=== PATIENT | female | born 1970 | race American Indian/Alaskan Native ===

== ENCOUNTER 2016-05-14 14:13 | Emergency (ER) | payer MEDICAID, MEDICARE, OTHER ==
[2016-05-14] MEDS ORDERED: ZOFRAN ODT PO ONE (16:21)
[2016-05-14] MEDS ORDERED: ZOFRAN IM ONE (18:09)
[2016-05-14] MEDS ORDERED: NACL 0.9% 1000 ML 1,000 ML IV ONE ×2 (18:43→22:10)
--- NOTE | 2016-05-14 18:59 | Emergency Department Report ---
ED Abdominal Pain HPI - General Chief Complaint: Abdominal Pain Stated Complaint: N/V/DIZZINESS Source: patient Mode of arrival: Wheelchair Limitations: No Limitations - History of Present Illness Initial Comments: 46-year-old female with a past medical history of Crohn's disease diagnosed in 2009 history of hypertension and asthma IBD with colitis. Comes in for nausea and vomiting abdominal pain. Patient reports that this has been going on since February but have progressed and gotten worse. She does report that she went to GI for a GI scope one week ago she has not gotten the results as of yet. She complains of epigastric pain and abdomen pain diffuse. Complains of nausea vomiting off and on since February diarrhea that she wearing depends she has not been able to eat much she has been trying to eat Jell-O and apple sauce most foods she has been going to her. History of hysterectomy 2006. Allergies is penicillin and sulfur iodine and Dilantin. Reports that the stomach pain is sharp and burning. - Related Data Home Medications Medication Instructions Recorded Confirmed Last Taken Ipratropium/Albuter (Nf) 3 puff IH TID 12/12/12 10/06/13 12/11/12 20:00 [Combivent Inhaler] Mesalamine [Delzicol] 400 mg PO BID 12/12/12 10/06/13 12/12/12 02:00 Omeprazole [First-Omeprazole] 20 mg PO QDAY 12/12/12 10/06/13 12/11/12 09:00 cloNIDine [Catapres] 0.2 mg PO DAILY 12/12/12 10/06/13 12/11/12 20:00 Previous Rx's Medication Instructions Recorded Last Taken Type Dicyclomine [Bentyl] 20 mg PO QID #20 tablet 12/12/12 Unknown Rx Prednisone 20 mg PO QDAY #5 tablet 04/05/13 Unknown Rx Promethazine /Codeine 5 ml PO Q6H PRN #60 udc 04/05/13 Unknown Rx [Phenergan/Codeine 6.25-10 mg/5 ml] Ondansetron [Zofran] 4 mg PO Q6HR PRN #20 tablet 07/26/13 Unknown Rx Azithromycin [Zithromax] 500 mg PO QDAY #5 tablet 09/27/13 Unknown Rx Oxycodone HCl/Acetaminophen 1 each PO Q4-6H PRN #20 tablet 09/27/13 Unknown Rx [Percocet 10-325 mg] Potassium Chloride [K-Dur] 10 meq PO QDAY #5 tablet 09/27/13 Unknown Rx Ibuprofen [Motrin 800 MG tab] 800 mg PO Q8H #30 tablet 10/07/13 Unknown Rx HYDROcodone/APAP 5-325 [[place] 1 each PO Q6HR PRN #14 tablet 05/14/16 Unknown Rx 5-325 mg TAB] Promethazine [Phenergan TAB] 50 mg PO Q6H PRN #20 tablet 05/14/16 Unknown Rx Allergies Allergy/AdvReac Type Severity Reaction Status Date / Time hydromorphone HCl AdvReac Severe PSYCHOTIC Verified 09/27/13 11:19 [From Dilaudid] EPISODES metoclopramide HCl AdvReac Severe PSYCHOTIC Verified 09/27/13 11:19 [From Reglan] EPISODES Penicillins AdvReac Severe SEIZZURES Verified 09/27/13 11:19 prochlorperazine edisylate AdvReac Severe PSYCHOTIC Verified 09/27/13 11:19 [From Compazine] EPISODES prochlorperazine maleate AdvReac Severe PSYCHOTIC Verified 09/27/13 11:19 [From Compazine] EPISODES shellfish derived AdvReac Severe BREATHING Verified 09/27/13 11:19 ISSUES,SWELLING Sulfa (Sulfonamide AdvReac Severe Rash Verified 09/27/13 11:19 Antibiotics) ED Review of Systems ROS: Stated complaint: N/V/DIZZINESS Other details as noted in HPI Gastrointestinal: abdominal pain, nausea, vomiting, diarrhea ED Past Medical Hx - Past Medical History Hx Hypertension: Yes Hx Asthma: Yes Additional medical history: chron's disease. IBS - Surgical History Hx Cholecystectomy: Yes Additional Surgical History: tubal ligation. partial hysterectomy - Social History Smoking Status: Never Smoker Substance Use Type: None - Medications Home Medications: Home Medications Medication Instructions Recorded Confirmed Last Taken Type Dicyclomine [Bentyl] 20 mg PO QID #20 tablet 12/12/12 10/06/13 Unknown Rx Ipratropium/Albuter (Nf) 3 puff IH TID 12/12/12 10/06/13 12/11/12 20:00 History [Combivent Inhaler] Mesalamine [Delzicol] 400 mg PO BID 12/12/12 10/06/1313 02:00 History Omeprazole [First-Omeprazole] 20 mg PO QDAY 12/12/12 10/06/13 12/11/12 09:00 History cloNIDine [Catapres] 0.2 mg PO DAILY 12/12/12 10/06/13 12/11/12 20:00 History Prednisone 20 mg PO QDAY #5 tablet 04/05/13 10/06/13 Unknown Rx Promethazine /Codeine 5 ml PO Q6H PRN #60 udc 04/05/13 10/06/13 Unknown Rx [Phenergan/Codeine 6.25-10 mg/5 ml] Ondansetron [Zofran] 4 mg PO Q6HR PRN #20 tablet 07/26/13 10/06/13 Unknown Rx Azithromycin [Zithromax] 500 mg PO QDAY #5 tablet 09/27/13 10/06/13 Unknown Rx Oxycodone HCl/Acetaminophen 1 each PO Q4-6H PRN #20 tablet 09/27/13 10/06/13 Unknown Rx [Percocet 10-325 mg] Potassium Chloride [K-Dur] 10 meq PO QDAY #5 tablet 09/27/13 10/06/13 Unknown Rx Ibuprofen [Motrin 800 MG tab] 800 mg PO Q8H #30 tablet 10/07/13 Unknown Rx HYDROcodone/APAP 5-325 [[place] 1 each PO Q6HR PRN #14 tablet 05/14/16 Unknown Rx 5-325 mg TAB] Promethazine [Phenergan TAB] 50 mg PO Q6H PRN #20 tablet 05/14/16 Unknown Rx ED Physical Exam - General Limitations: No Limitations General appearance: alert - Head Head exam: Present: atraumatic, normocephalic - Eye Eye exam: Present: normal appearance, PERRL, EOMI - ENT ENT exam: Present: mucous membranes dry - Neck Neck exam: Present: full ROM. Absent: tenderness, lymphadenopathy - Respiratory Respiratory exam: Present: normal lung sounds bilaterally. Absent: respiratory distress, wheezes, rales, rhonchi - Cardiovascular Cardiovascular Exam: Present: regular rate, normal rhythm, normal heart sounds - GI/Abdominal GI/Abdominal exam: Present: soft, tenderness, hypoactive bowel sounds. Absent: distended - Extremities Exam Extremities exam: Present: normal inspection, full ROM. Absent: tenderness, pedal edema - Neurological Exam Neurological exam: Present: alert, oriented X3 ED Course Vital Signs 05/14/16 05/14/16 05/14/16 15:21 18:20 19:49 Temperature 99.2 F 98.9 F Pulse Rate 95 H 94 H Respiratory 24 20 22 Rate Blood Pressure 175/116 Blood Pressure 185/108 [Left] O2 Sat by Pulse 100 100 99 Oximetry 05/14/16 05/14/16 20:49 21:02 Temperature Pulse Rate 89 Respiratory 22 20 Rate Blood Pressure Blood Pressure 177/102 [Left] O2 Sat by Pulse 99 Oximetry ED Medical Decision Making - Lab Data Result diagrams: 05/14/16 19:21 05/14/16 19:21 - Radiology Data Radiology results: image reviewed FINDINGS: Visualized lower thorax: No significant abnormality. There is a 6 millimeter calcified granuloma at the right lung base. Liver: Liver is enlarged and fatty. There is no mass.. Spleen: Normal size and attenuation. There are calcified granulomas in the spleen. Gallbladder and biliary system: There has been a cholecystectomy. Bile ducts are normal in caliber.. Pancreas: Normal. Adrenals: Normal. Kidneys: There are no kidney stones. There is no hydronephrosis.. GI tract: There is no bowel obstruction, colitis or enteritis. The appendix is normal.. Lymph nodes and mesentery: Normal. Vasculature: Normal. Bladder: Normal. Reproductive organs: There has been a hysterectomy.. Peritoneum: There is no ascites, free air, abscess or adenopathy.. Musculoskeletal structures: No significant abnormality. Other: There is an umbilical hernia containing fat only.. IMPRESSION: No acute abnormality is identified. The liver is enlarged and fatty. There has been a cholecystectomy. There are no kidney stones. There is no acute bowel abnormality. The appendix is normal.. Transcribed By: CO Dictated By: SHIREEN BARONE MD Electronically Authenticated By: SHIREEN BARONE MD Signed Date/Time: 05/14/16 1908 - Medical Decision Making Patient's been evaluated by this provider Main ER. IV fluids 1000 mL's, Zofran 8 mg IM. Awaiting labs to be done. This is difficult getting blood return secondary dehydration. Patient has been given Zofran, Phenergan per rectal and Benadryl for nausea and vomiting. CT was done with no acute abnormalities. Critical care attestation.: If time is entered above; I have spent that time in minutes in the direct care of this critically ill patient, excluding procedure time. ED Disposition Clinical Impression: Nausea and vomiting in adult, Acute abdominal pain Disposition: DISCHARGED TO HOME OR SELFCARE Is pt being admited?: No Does the pt Need Aspirin: No Condition: Stable Instructions: Abdominal Pain (ED) Prescriptions: HYDROcodone/APAP 5-325 [[place] 5-325 mg TAB] 1 each PO Q6HR PRN #14 tablet PRN Reason: Pain Promethazine [Phenergan TAB] 50 mg PO Q6H PRN #20 tablet PRN Reason: Nausea Referrals: PRIMARY CAREMD [Primary Care Provider] - 3-5 Days SALOMON FERRARA MD [Staff Physician] - 3-5 Days Forms: Work/School Release Form(ED), Accompanied Note
[2016-05-14] MEDS ORDERED: PHENERGAN PR ONE (19:14)
[2016-05-14 20:01] LABS: Hematocrit 37.8 % (30.3-42.9); Hemoglobin 12.4 gm/dl (10.1-14.3); Mean Corpuscular HGB Conc 33 % (30-34); Mean Corpuscular Hemoglobin 30 pg (28-32); Mean Corpuscular Volume 92 fl (79-97); Platelet Count 326 K/mm3 (140-440); Red Blood Count 4.09 M/mm3 (3.65-5.03); Red Cell Distribution Width 13.5 % (13.2-15.2); White Blood Count 14.3 K/mm3 (4.5-11.0)
[2016-05-14 20:13] LABS: Albumin 4.2 g/dL (3.9-5); Albumin/Globulin Ratio 1.1 %; Alkaline Phosphatase 77 units/L (35-129); Anion Gap 21 mmol/L; BUN/Creatinine Ratio 11.25; Bilirubin,Total 0.7 mg/dL (0.1-1.2); Blood Urea Nitrogen 9 mg/dL (7-17); Calcium 9.2 mg/dL (8.4-10.2); Carbon Dioxide 21 mmol/L (22-30); Chloride 103.1 mmol/L (98-107); Glucose 118 mg/dL (65-100); Lipase 15 units/L (13-60); Potassium 3.8 mmol/L (3.6-5.0); Sodium 141 mmol/L (137-145); Total Protein 7.9 g/dL (6.3-8.2)
[2016-05-14] MEDS ORDERED: MORPHINE IV ONE (20:35)
[2016-05-14 20:37] LABS: Bacteria,Urine 3+ /HPF (Negative); Mucus,Urine 3+ /HPF
[2016-05-14 20:43] LABS: Bilirubin,Urine NEG (Negative); Blood,Urine MOD (Negative); Ketones,Urine 20 mg/dL (Negative); Leukocyte Esterase,Urine LG (Negative); Nitrite,Urine NEG (Negative)
[2016-05-14 20:44] LABS: Alanine Aminotransferase 21 units/L (7-56)
[2016-05-14 20:47] LABS: Basophils % (Manual) 0 % (0.0-1.8); Blastocytes % (Manual) 0 %; Eosinophils % (Manual) 0 % (0.0-4.3)
[2016-05-14 20:49] LABS: Hypochromasia 1+
[2016-05-14 20:50] LABS: Diff Status Complete; Platelet Clumps Few; Platelet Estimate Consistent w Auto
[2016-05-14] MEDS ORDERED: BENADRYL IV ONE ×2 (20:51→23:25)
--- NOTE | 2016-05-14 21:47 | Cat Scan Report ---
FINAL REPORT PROCEDURE: CT ABDOMEN PELVIS WO CON TECHNIQUE: Computerized axial tomography of the abdomen and pelvis was performed without intravenous contrast. This study is performed without intravascular contrast material and its sensitivity for abdominal and pelvic pathology, including neoplasms, inflammation, abscess, free fluid, thrombosis, arterial dissection and infarction, is reduced compared with a contrast enhanced study. HISTORY: abd pain with history of chrons, anf ibd COMPARISON: 07/26/2013 FINDINGS: Visualized lower thorax: No significant abnormality. There is a 6 millimeter calcified granuloma at the right lung base. Liver: Liver is enlarged and fatty. There is no mass.. Spleen: Normal size and attenuation. There are calcified granulomas in the spleen. Gallbladder and biliary system: There has been a cholecystectomy. Bile ducts are normal in caliber.. Pancreas: Normal. Adrenals: Normal. Kidneys: There are no kidney stones. There is no hydronephrosis.. GI tract: There is no bowel obstruction, colitis or enteritis. The appendix is normal.. Lymph nodes and mesentery: Normal. Vasculature: Normal. Bladder: Normal. Reproductive organs: There has been a hysterectomy.. Peritoneum: There is no ascites, free air, abscess or adenopathy.. Musculoskeletal structures: No significant abnormality. Other: There is an umbilical hernia containing fat only.. IMPRESSION: No acute abnormality is identified. The liver is enlarged and fatty. There has been a cholecystectomy. There are no kidney stones. There is no acute bowel abnormality. The appendix is normal..
[2016-05-14] MEDS ORDERED: ZOFRAN IV ONE (23:25)
[2016-05-15 00:31] VITALS: BP 160/90
== END 2016-05-15 00:30 | disposition home or self-care (01) ==
LOC: ED 14:13
DX: R11.2 Nausea with vomiting, unspecified (principal); R10.13 Epigastric pain; I10 Essential (primary) hypertension; K58.9 Irritable bowel syndrome, unspecified; J45.909 Unspecified asthma, uncomplicated; Z88.0 Allergy status to penicillin; Z88.2 Allergy status to sulfonamides; Z88.8 Allergy status to other drugs, medicaments and biological substances; Z91.013 Allergy to seafood
CPT/HCPCS: 36415; 74176; 80053; 81001; 83690; 85007; 85025; 96361; 96372; 96374; 96375; 96376; 99284; J1200; J2270; J2405; J7030; Q0162

== ENCOUNTER 2018-10-29 16:33 | Emergency (ER) | payer MEDICAID ==
--- NOTE | 2018-10-29 17:50 | Emergency Department Report ---
Blank Doc - Documentation Documentation: This is a 48-year-old female that presents with right elbow pain. This initial assessment/diagnostic orders/clinical plan/treatment(s) is/are subject to change based on patient's health status, clinical progression and re- assessment by fellow clinical providers in the ED. Further treatment and workup at subsequent clinical providers discretion. Patient/guardians urged not to elope from the ED as their condition may be serious if not clinically assessed and managed. Initial orders include: 1- Patient sent to [facility] for further evaluation and treatment 2- xray
[2018-10-29 17:54] VITALS: BP 199/112
--- NOTE | 2018-10-29 18:55 | XRay Report ---
XR elbow 3+V RT INDICATION / CLINICAL INFORMATION: elbow pain. COMPARISON: None available. FINDINGS: BONES/JOINT(S): No acute fracture or subluxation. No significant degenerative changes. SOFT TISSUES: No significant abnormality. ADDITIONAL FINDINGS: None. Signer Name: Shailesh Nicole MD Signed: 10/29/2018 6:51 PM Workstation Name: [id number]
[2018-10-29] MEDS ORDERED: ULTRAM PO ONE (19:44)
--- NOTE | 2018-10-29 19:49 | Emergency Department Report ---
Upper Extremity - HPI Chief Complaint: Extremity Injury, Upper Stated Complaint: R ARM/ELBOW PAIN Time Seen by Provider: 10/29/18 17:50 Upper Extremity: Right Elbow Occurred When: >5 Days (2 weeks ago) Mechanism: Hyperextension Severity: moderate Symptoms: Yes Pain with Movement, Yes Limited Range of Movement, No Deformity, No Numbness, No Weakness, No Swelling, No Bruising/Ecchymosis, No Laceration or Abrasion Other History: This is a 48-year-old female that presents with right elbow pain. states she hyperetened right elbow lift boxes at work 2 weeks ago tx's at urgent care dx with sprain , pain remains did not see ortho as directed pain now 5/10 aching exacerbated by movement and lifting there is no numbness no deformity no weakness ED Review of Systems ROS: Stated complaint: R ARM/ELBOW PAIN Other details as noted in HPI Constitutional: denies: chills, fever Eyes: denies: eye pain, eye discharge, vision change ENT: denies: ear pain, throat pain Respiratory: denies: cough, shortness of breath, wheezing Cardiovascular: denies: chest pain, palpitations Endocrine: no symptoms reported Gastrointestinal: denies: abdominal pain, nausea, diarrhea Genitourinary: denies: urgency, dysuria, discharge Musculoskeletal: joint swelling (right elbow ), myalgia Skin: denies: rash, lesions Neurological: denies: headache, weakness, paresthesias Psychiatric: denies: anxiety, depression Hematological/Lymphatic: denies: easy bleeding, easy bruising ED Past Medical Hx - Past Medical History Hx Hypertension: Yes Hx Asthma: Yes Additional medical history: chron's disease. IBS - Surgical History Hx Cholecystectomy: Yes Additional Surgical History: tubal ligation. partial hysterectomy - Social History Smoking Status: Never Smoker Substance Use Type: None - Medications Home Medications: Home Medications Medication Instructions Recorded Confirmed Last Taken Type Dicyclomine [Bentyl] 20 mg PO QID #20 tablet 12/12/12 10/06/13 Unknown Rx Ipratropium/Albuter (Nf) 3 puff IH TID 12/12/12 10/06/13 12/11/12 20:00 History [Combivent Inhaler] Mesalamine [Delzicol] 400 mg PO BID 12/12/12 10/06/13 12/12/12 02:00 History Omeprazole [First-Omeprazole] 20 mg PO QDAY 12/12/12 10/06/13 12/11/12 09:00 History cloNIDine [Catapres] 0.2 mg PO DAILY 12/12/12 10/06/13 12/11/12 20:00 History Prednisone 20 mg PO QDAY #5 tablet 04/05/13 10/06/13 Unknown Rx Promethazine /Codeine 5 ml PO Q6H PRN #60 udc 04/05/13 10/06/13 Unknown Rx [Phenergan/Codeine 6.25-10 mg/5 ml] Ondansetron [Zofran] 4 mg PO Q6HR PRN #20 tablet 07/26/13 10/06/13 Unknown Rx Azithromycin [Zithromax] 500 mg PO QDAY #5 tablet 09/27/13 10/06/13 Unknown Rx Oxycodone HCl/Acetaminophen 1 each PO Q4-6H PRN #20 tablet 09/27/13 10/06/13 Unknown Rx [Percocet 10-325 mg] Potassium Chloride [K-Dur] 10 meq PO QDAY #5 tablet 09/27/13 10/06/13 Unknown Rx Ibuprofen [Motrin 800 MG tab] 800 mg PO Q8H #30 tablet 10/07/13 Unknown Rx HYDROcodone/APAP 5-325 [[place] 1 each PO Q6HR PRN #14 tablet 05/14/16 Unknown Rx 5-325 mg TAB] Promethazine [Phenergan] 50 mg PO Q6H PRN #20 tablet 05/14/16 Unknown Rx Cyclobenzaprine [Flexeril] 10 mg PO TID PRN #30 tablet 10/29/18 Unknown Rx Menthol/Camphor [[place] 1 applicatio TP QID PRN #1 tube 10/29/18 Unknown Rx Ointment] Naproxen [Naprosyn TAB] 500 mg PO BID PRN #30 tablet 10/29/18 Unknown Rx Upper Extremity Exam - Exam General: Vital signs noted. No distress. Alert and acting appropriately. Head and Torso: No HEENT Abnormality, No Neck Tenderness, No Chest/Lungs Abnormality, No Abdominal Tenderness, No Back Tenderness Shoulder Exam: Yes Normal Range of Motion in Shoulder, No Shoulder Tenderness, No Clavicle Tenderness, No Shoulder Deformity, No AC Joint Tenderness Arm Exam: No Arm/Humerus Tenderness, No Arm Deformity Elbow: Yes Elbow Tenderness, Yes Normal Range of Motion in Elbow, No Elbow Deformity Forearm: Yes Forearm Tenderness (mild pain to ulnar distribution), Yes Pain with Pronation, Yes Pain with Supination, No Forearm Deformity Wrist: Yes Normal ROM in Wrist, No Wrist Tenderness, No Wrist Deformity, No Snuffbox Tenderness, No Pain with Axial Thumb Compression Hand: Yes Normal ROM in Digit(s), No Hand Tenderness, No Hand Deformity, No Digit Tenderness, No Digit(s) Deformity CMS Exam: Yes Normal Distal Pulses, Yes Normal Capillary Refill, Yes Normal Distal Sensation, No Broken Skin ED Course Vital Signs 10/29/18 17:50 Temperature 98.4 F Pulse Rate 72 Respiratory 16 Rate Blood Pressure 199/112 O2 Sat by Pulse 97 Oximetry ED Medical Decision Making - Radiology Data Radiology results: report reviewed, image reviewed Ordering Physician: POOJA CABRERA NP Date of Service: 10/29/18 Procedure(s): XR elbow 3+V RT Accession Number(s): [id number] cc: POOJA CABRERA NP Fluoro Time In Minutes: XR elbow 3+V RT INDICATION / CLINICAL INFORMATION: elbow pain. COMPARISON: None available. FINDINGS: BONES/JOINT(S): No acute fracture or subluxation. No significant degenerative changes. SOFT TISSUES: No significant abnormality. ADDITIONAL FINDINGS: None. Signer Name: Shailesh Nicole MD Signed: 10/29/2018 6:51 PM Workstation Name: [id number] Transcribed By: MARKELL Dictated By: Shailesh Nicole MD Electronically Authenticated By: Shailesh Nicole MD Signed Date/Time: 10/29/181850 DD/ 49 TD/TT: - Medical Decision Making this is an elbow strain , plan nsaids muscle relaxant, analgesic balm continue elbow sleeve follow up with orthopedics in 2-3 days , return to emergency if symptoms worsen. Critical care attestation.: If time is entered above; I have spent that time in minutes in the direct care of this critically ill patient, excluding procedure time. ED Disposition Clinical Impression: Strain of elbow, right Qualifiers: Encounter type: initial encounter Qualified Code(s): S46.911A - Strain of unspecified muscle, fascia and tendon at shoulder and upper arm level, right arm, initial encounter Disposition: TO HOME OR SELFCARE Is pt being admited?: No Does the pt Need Aspirin: No Condition: Stable Instructions: Elbow Sprain (ED) Prescriptions: Cyclobenzaprine [Flexeril] 10 mg PO TID PRN #30 tablet PRN Reason: Muscle Spasm Naproxen [Naprosyn TAB] 500 mg PO BID PRN #30 tablet PRN Reason: pain Menthol/Camphor [[place] Ointment] 1 applicatio TP QID PRN #1 tube PRN Reason: pain Referrals: RANI WOLFE MD [Staff Physician] - 3-5 Days Forms: Work/School Release Form(ED) Time of Disposition: 20:01
== END 2018-10-29 20:15 | disposition home or self-care (01) ==
LOC: ED 16:33
DX: S56.911A Strain of unspecified muscles, fascia and tendons at forearm level, right arm, initial encounter (principal); I10 Essential (primary) hypertension; J45.909 Unspecified asthma, uncomplicated; Z90.49 Acquired absence of other specified parts of digestive tract; Z98.51 Tubal ligation status; Z90.710 Acquired absence of both cervix and uterus; X50.0XXA Overexertion from strenuous movement or load, initial encounter; Y93.89 Activity, other specified; Y92.89 Other specified places as the place of occurrence of the external cause; Y99.0 Civilian activity done for income or pay
CPT/HCPCS: 99283; 99284

== ENCOUNTER 2021-05-13 14:26 | Emergency (ER) | payer OTHER, MEDICAID ==
[2021-05-13] MEDS ORDERED: CYCLOBENZAPRINE 10 MG TAB PO ONE (19:43)
[2021-05-13] MEDS ORDERED: ACETAMINOPHEN W/CODEINE 300-30 MG TAB PO ONE (19:43)
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
[2021-05-13 21:47] VITALS: BP 156/90
== END 2021-05-13 21:23 | disposition home or self-care (01) ==
LOC: ED 14:26
DX: M54.50 Low back pain, unspecified (principal); R10.9 Unspecified abdominal pain; I10 Essential (primary) hypertension; J45.909 Unspecified asthma, uncomplicated; Z90.49 Acquired absence of other specified parts of digestive tract; Z88.8 Allergy status to other drugs, medicaments and biological substances; Z88.2 Allergy status to sulfonamides; Z91.013 Allergy to seafood; Z88.0 Allergy status to penicillin; V89.2XXA Person injured in unspecified motor-vehicle accident, traffic, initial encounter; Y93.89 Activity, other specified; Y92.89 Other specified places as the place of occurrence of the external cause; Y99.8 Other external cause status
CPT/HCPCS: 72131; 74176; 99283